=== PATIENT | male | born 2000 | race Two or more races ===

== ENCOUNTER 2022-03-13 19:53 | Emergency (ER) | payer MEDICAID, OTHER ==
[~2022-03-13] VITALS: Ht 177.8 cm; Wt 111.4 kg
[2022-03-13 20:13] VITALS: BP 151/101
[2022-03-13 20:48] LABS: Basophils # (auto) 0 10 ^3/uL (0-0.2); Lymphocytes # (auto) 1.4 10 ^3/uL (0.4-5.4); Monocytes # (auto) 0.8 10 ^3/uL (0-1.3)
[2022-03-13 20:49] LABS: Basophils % (auto) 0.4 % (0.0-2.0); Eosinophils # (auto) 0.1 10 ^3/uL (0-0.8); Eosinophils % (auto) 1.6 % (0.0-7.0); Hematocrit 39.7 % (41.0-53.0); Hemoglobin 13.6 g/dL (13.5-17.5); Lymphocytes % (auto) 17.4 % (10.0-50.0); Mean Corpuscular Hemoglobin 26.8 pg (28.0-32.0); Mean Corpuscular Hgb Conc. 34.2 g/dL (32.0-36.0); Mean Corpuscular Volume 78.4 fL (80.0-100.0); Monocytes % (auto) 9.8 % (0.0-12.0); Neutrophils # (auto) 5.8 10 ^3/uL (1.6-8.6); Neutrophils % (auto) 70.8 % (37.0-80.0); Red Blood Cells 5.07 10^6/uL (4.5-5.90); Red Cell Distribution Width 13.4 % (11.8-14.3); White Blood Cell 8.2 10^3/uL (4.4-10.8)
[2022-03-13 21:05] LABS: Albumin 3.8 g/dL (3.4-5.0); Magnesium 1.8 mg/dL (1.6-2.6); Potassium 3.7 mmol/L (3.5-5.1)
[2022-03-13 21:08] LABS: BUN/Creatinine Ratio 15.4; Bilirubin, Total 0.5 mg/dL (0.2-1.0); Total Protein 7.6 g/dL (6.4-8.2)
[2022-03-13] MEDS ORDERED: CEPHALEXIN 250 MG CAP PO ONE (22:00)
[2022-03-13] MEDS ORDERED: SULFAMETHOX W/TRIMETH(800/160MG) DS TAB PO ONE (22:00)
[2022-03-13] MEDS ORDERED: BACDST PO ×2 (22:26→23:05)
[2022-03-13] MEDS ORDERED: ACET-1079 PO ×2 (22:26→23:05)
[2022-03-13] MEDS ORDERED: CEPH-510 PO ×2 (22:26→23:05)
[2022-03-13] MEDS ORDERED: IBUP400T23 PO ×2 (22:26→23:05)
== END 2022-03-14 01:57 | disposition home or self-care (01) ==
LOC: EDBD 19:53 → ER 19:57
DX: L03.116 Cellulitis of left lower limb (principal); I10 Essential (primary) hypertension
CPT/HCPCS: 36415; 73590; 80053; 83690; 83735; 85025; 87040; 93971